=== PATIENT | female | born 1965 | race Caucasian/White ===

== ENCOUNTER 2021-04-12 09:33 | Emergency (ER) | payer BC ==
[~2021-04-12] VITALS: Ht 180.3 cm; Wt 97.5 kg
[2021-04-12 12:29] LABS: HEMOGLOBIN 14.9 gm/dl (12.3-15.3); RED BLOOD COUNT 5.06 M/UL (4.00-5.10); WHITE BLOOD COUNT 4.5 K/UL (4.5-11.0)
== END 2021-04-12 17:45 | disposition home or self-care (01) ==
LOC: ER1 09:33
PROVIDERS: Physician Assistant
DX: U07.1 COVID-19 (principal); E86.0 Dehydration; I10 Essential (primary) hypertension; Z90.710 Acquired absence of both cervix and uterus
CPT/HCPCS: 71045; 80053; 85025; 99285